=== PATIENT | female | born 1940 | race Caucasian/White ===

== ENCOUNTER 2017-03-25 21:07 | Inpatient (IN) | payer MEDICARE, BC ==
[~2017-03-25] VITALS: Ht 152.4 cm; Wt 92.2 kg
--- NOTE | ~2017-03-25 | CN ---
Consultation Report [address] [place]. [address] NAME: YURYRFERNIE : 42 STATUS : ADM IN [facility]#: [id number] AGE: 76 ADM/REG DATE : 03/26/17 MR#: [id number] REPORT SERV DATE: 04/02/17 DICTATED BY: SUNIAT WISE DATE: 04/01/17 REPORT STATUS : Draft TRANSCRIBED BY: MODL DATE: 04/01/17 CONSULT NOTE DATE OF CONSULTATION: 04/01/2017 REASON FOR CONSULT: Lymph node biopsy. HISTORY OF PRESENT ILLNESS: The patient is a 76-year-old female who was admitted on 03/26/2017 after a fall at home with weakness and gait abnormality as well as electrolyte derangements and acute kidney injury. She was noted in particular of hypercalcemia of unclear etiology. A CT scan was performed that revealed mesenteric retroperitoneal pelvic and inguinal lymphadenopathy, suspicious for lymphoma. PAST MEDICAL HISTORY: Hypertension, diabetes, hypothyroidism, sleep apnea, uterine cancer, arthritis, diverticulitis. PAST SURGICAL HISTORY: Hysterectomy, lumpectomy, cholecystectomy, partial colectomy. SOCIAL HISTORY: The patient denies tobacco or alcohol use. ALLERGIES: DEMEROL. REVIEW OF SYSTEMS: Complete review of systems was performed and is as follows: GENERAL: The patient complains of malaise as well as weight loss, unintentional. HEENT: The patient denies vision loss, blurred vision, double vision. She denies hearing loss, congestion, or sore throat. SKIN: Denies rashes or itching. CARDIOVASCULAR: Denies chest pain, palpitations. RESPIRATORY: Does endorse some shortness of breath. Denies cough. GASTROINTESTINAL: Endorses some nausea. No vomiting or abdominal pain. NEURO: The patient denies headache, syncope, numbness, tingling in the extremity. MUSCULOSKELETAL: The patient does complain of joint pain, stiffness, especially in the knees. ENDOCRINE: The patient denies polyuria or polydipsia. PHYSICAL EXAMINATION: VITAL SIGNS: The patient is afebrile. Vital signs are stable. GENERAL: She is in no acute distress. HEENT: Normocephalic, atraumatic. Pupils are equal, round, and reactive to light. Extraocular movements are intact. Mucous membranes are moist. NECK: Supple. Trachea is midline. CARDIOVASCULAR: Regular rate and rhythm. No rubs, murmurs, or gallops. PULMONARY: Clear to auscultation bilaterally. ABDOMEN: Soft, obese, nontender. Consultation Report [place] [address] [place]. [address] NAME: YURYRFERNIE : 42 STATUS : ADM IN PAT#: [id number] AGE: 76 ADM/REG DATE : 03/26/17 MR#: [id number] REPORT SERV DATE: 04/02/17 DICTATED BY: SUNITA WISE DATE: 04/01/17 REPORT STATUS : Draft TRANSCRIBED BY: EMORY DATE: 04/01/17 EXTREMITIES: The patient moves all four extremities with 5/5 strength. There is noted to be palpable lymphadenopathy in the bilateral inguinal area. SKIN: There are no rashes. NEURO: Cranial nerves 2 through 12 are grossly intact. LABORATORY DATA: White blood cell count is 8, hematocrit 40.1, platelets 229. Sodium 143, potassium 4, chloride 106, bicarb 28, BUN 29, creatinine 0.9, glucose 124, calcium 11.8. ASSESSMENT AND PLAN: The patient is a 76-year-old female with weakness, falls, hypercalcemia of unclear etiology as well as diffuse lymphadenopathy concerning for lymphoma. After discussion with Dr. Wise, plan will be for open right inguinal lymph node biopsy tomorrow. Risks, benefits, and alternatives were discussed with the patient including but not limited to risk of bleeding, infection, and damage to surrounding structures, including neurovascular structures, and risk of anesthesia. The patient expressed understanding and wishes to proceed with operative Intervention. DICTATED BY: MD VELVET Bob/EMORY Noé Wise M.D. / [id number] CC: Alicia Gannon M.D.
--- NOTE | ~2017-03-25 | HP ---
History And Physical [place] [id number] [facility] [place]. [address] NAME: FERNIE DANIEL : 42 STATUS : REG ER PAT#: [id number] AGE: 76 ADM/REG DATE : 03/25/17 MR#: [id number] REPORT SERV DATE: 03/26/17 DICTATED BY: SARIKA CONDON DATE: 03/26/17 REPORT STATUS : Draft TRANSCRIBED BY: MODTomas DATE: 03/26/17 DATE OF ADMISSION: 03/25/2017 POINT OF ENTRY: [facility] Emergency Department. CHIEF COMPLAINT: Falls with weakness and pain. HISTORY OF PRESENT ILLNESS: Ms. Daniel is a 76-year-old female with a history of hypertension, insulin-dependent diabetes mellitus type 2, hypothyroidism, GERD, and obstructive sleep apnea on CPAP therapy, who presents to emergency department today after suffering a mechanical fall at home, now with severe weakness, pain, and inability to walk. The patient states that for the past few days, she has just generally felt weak. She states that she has lost about 20 pounds over the previous two months that has been unintentional in nature. She has had a poor appetite recently as well as some abdominal discomfort and bloating. The patient also states she suffered a mechanical fall at home today landing on her sacral region. She tried to ambulate after her fall and had severe difficulties walking secondary to either pain or weakness and/or both prompting presentation to the emergency department. She denies any associated fevers, night sweats, chills, chest pain, palpitations, shortness of breath, abdominal pain, nausea, vomiting, diarrhea, constipation, dysuria, lower extremity edema, melena, hematochezia, hemoptysis, or hematemesis. Initial evaluation in the emergency department is notable for a creatinine of 1.2 with no baseline comparison. She also had multiple electrolyte abnormalities with a potassium of 2.8, magnesium 1.2, and a calcium level of 12.0. CT of the pelvis was unremarkable. EKG also unremarkable. The patient was subsequently admitted to the Hospitalist Service secondary to the patient's weakness and pain. COMPREHENSIVE REVIEW OF SYSTEMS: Otherwise negative unless listed in history of present illness. PREVIOUS MEDICAL HISTORY: 1. Insulin-dependent diabetes mellitus type 2. 2. Hypothyroidism. 3. Hypertension. 4. GERD. 5. History of uterine cancer, status post hysterectomy. 6. Obstructive sleep apnea, on CPAP therapy. 7. Asthma. 8. Osteoarthritis, osteoporosis. 9. Graves disease. 10.History of diverticulitis. 11.History of breast cancer in situ, status post lumpectomy. History And Physical [address] [address] NAME: FERNIE DANIEL : 42 STATUS : REG ER PAT#: [id number] AGE: 76 ADM/REG DATE : 03/25/17 MR#: [id number] REPORT SERV DATE: 03/26/17 DICTATED BY: SARIKA CONDON DATE: 03/26/17 REPORT STATUS : Draft TRANSCRIBED BY: EMORY DATE: 03/26/17 SURGICAL HISTORY: 1. Tonsillectomy. 2. Abdominal hysterectomy. 3. Cholecystectomy. 4. Partial thyroidectomy. 5. Breast lumpectomy. 6. Partial colectomy. ALLERGIES: DEMEROL. HOME MEDICATIONS: 1. Acetaminophen 1000 mg b.i.d. 2. Fosamax 70 mg weekly. 3. Vitamin D 10,000 units Wednesday and Wednesday. 4. Tricor 48 mg daily. 5. Visine tears t.i.d. p.r.n. 6. Hydralazine 50 mg q.p.m. 7. NovoLog 12 units q.a.m. 8. NovoLog 10 units q.p.m. 9. Lantus 16 units q.h.s. 10.Prevacid 30 mg q.a.m. 11.Synthroid 100 mcg daily. 12.Lisinopril/hydrochlorothiazide 20/12.5 one tab daily. 13.Singulair 10 mg daily. 14.Multivitamin one tab daily. 15.Dighton-3 fatty acid. 16.Fish oil 1200 mg daily. 17.Potassium chloride 10 mEq daily. 18.Sertraline 100 mg daily. 19.Simvastatin 40 mg q.h.s. 20.Terbinafine daily p.r.n. SOCIAL HISTORY: Denies any tobacco, alcohol, or illicits. FAMILY MEDICAL HISTORY: Mother with stroke, breast cancer, and dementia. Father with coronary artery disease. Siblings history is unknown. LABS AND IMAGIN. White count is 8.0, hemoglobin is 13.4, hematocrit is 40.1, platelet count is 229. INR is 1.1. 2. Sodium is 138, potassium 2.8, chloride 100, carbon dioxide 32, BUN 28, creatinine 1.21, glucose is 130, calcium is 12.0, magnesium is 1.2, protein is 6.9, albumin is 3.1, bilirubin is 0.5, ALT is 11, AST is 10, alkaline phosphatase is 38. 3. EKG per my review shows normal sinus rhythm with occasional PACs, but no acute ischemia or infarction. 4. CT scan of the pelvis shows no acute fractures per overnight virtual radiology read. History And Physical [address] [place]. [address] NAME: SUITERFERNIE : 42 STATUS : REG ER PAT#: [id number] AGE: 76 ADM/REG DATE : 03/25/17 MR#: [id number] REPORT SERV DATE: 03/26/17 DICTATED BY: SARIKA CONDON DATE: 03/26/17 REPORT STATUS : Draft TRANSCRIBED BY: EMORY DATE: 03/26/17 5. Urinalysis is pending at the time of dictation. PHYSICAL EXAMINATION: VITAL SIGNS: Temperature is 98.0 degrees Fahrenheit, pulse is 82, respirations 16, saturating 93% on room air, blood pressure 142/101. On recheck, blood pressure 164/73, pulse is 76. GENERAL: The patient is awake, alert, in no acute distress, resting comfortably in bed. She is a well-developed, well-nourished elderly obese female. HEENT: Atraumatic and normocephalic. Slightly dry mucous membranes. Pupils are equal, round, reactive to light and accommodation. Extraocular eye movements intact. No scleral icterus. NECK: No jugular venous distention. No carotid bruits. CARDIAC: Regular rate and rhythm. No murmurs or gallops. Normal S1, S2. LUNGS: Clear to auscultation bilaterally. No wheezes or crackles. ABDOMEN: Obese, soft, nontender, nondistended with good bowel sounds. No rebound, guarding, or rigidity. EXTREMITIES: Warm and well perfused. No cyanosis, clubbing, or edema. SKIN: Warm and dry. PSYCH: Affect appropriate. NEURO: Alert and oriented x3. Cranial nerves 2 through 12 are grossly intact. Speech is normal. Gait is not assessed. Strength is 5/5 bilateral lower extremities. ASSESSMENT AND PLAN: Ms. Daniel is a 76-year-old female who suffered a mechanical fall at home with resulting pain and weakness with associated gait abnormality, found to have multiple electrolyte abnormalities. PROBLEM LIST: 1. Fall. 2. Gait abnormality. 3. Weakness. 4. Hypokalemia. 5. Hypomagnesemia. 6. Hypercalcemia. 7. Acute kidney injury versus chronic kidney disease stage 3. 8. Hypothyroidism. 9. Hypertension. PLAN: 1. Fall with weakness, pain, and gait abnormality. CT pelvis was unremarkable. She does have good strength in bilateral lower extremities on individual muscle testing. We will ask Physical Therapy to evaluate the patient. She reports a history of recurrent falls in the past. Also, checking chest x-ray as well as urinalysis. Repleting electrolytes and provide IV fluid hydration. 2. Hypokalemia. Repleting per protocol. 3. Hypomagnesemia. Repleting per protocol. 4. Hypercalcemia. Checking ionized calcium level, holding hydrochlorothiazide. 5. Acute kidney injury versus chronic kidney disease stage 3. Providing some IV fluid History And Physical [address] [address] NAME: FERNIE DANIEL : 42 STATUS : REG ER PAT#: [id number] AGE: 76 ADM/REG DATE : 03/25/17 MR#: [id number] REPORT SERV DATE: 03/26/17 DICTATED BY: SARIKA CONDON DATE: 03/26/17 REPORT STATUS : Draft TRANSCRIBED BY: EMORY DATE: 03/26/17 hydration. I suspect this might be due to dehydration, as she appears to be somewhat dehydrated on exam. Holding the patient's hydrochlorothiazide, but continuing her home lisinopril for blood pressure control. 6. Hypertension. Holding hydrochlorothiazide, but continuing home lisinopril. 7. Hypothyroidism. Checking thyroid function studies. Continue the patient's home Synthroid. 8. DVT prophylaxis. Lovenox subcu. CODE STATUS: The patient wished to be full code. TOR/EMORY Sarika Condon MD / [id number] CC: Kirt Chen M.D.
--- NOTE | ~2017-03-25 | IDS ---
Interim Discharge Summary [facility] [address] [place]. [address] NAME: YURYRFERNIE : 42 STATUS : ADM IN [facility]#: [id number] AGE: 76 ADM/REG DATE : 03/26/17 MR#: [id number] REPORT SERV DATE: 04/04/17 DICTATED BY: JOAN SIMEON DATE: 04/04/17 REPORT STATUS : Draft TRANSCRIBED BY: MODL DATE: 04/04/17 ADMISSION DATE: 03/26/2017 DISCHARGE DATE: CONSULTANTS: Tesfaye Caicedo M.D., Orthopedics; Ger Garcia M.D., General Surgery. PROBLEM LIST: 1. Hypercalcemia with low parathyroid hormone. 2. Generalized weakness with falls. 3. Escherichia coli urinary tract infection. 4. Bilateral knee osteoarthritis. 5. Previous Graves' disease, now on supplemental thyroid after treatment. 6. Diabetes mellitus type 2 with A1c 6.4%. 7. Hypertension initially uncontrolled, now significantly improved. 8. Moderate protein-calorie malnutrition. 9. Obstructive sleep apnea using CPAP. 10.Unintentional weight loss 20 pounds in the last three months. HISTORY: This patient presented to the emergency room at [facility], having had a fall, landing on her tailbone, and having considerable pain. She also has been experiencing significant pain in her right knee making it difficult for her to walk, so she has been much more sedentary recently. She had also lost about 20 pounds in the previous two months without any attempt to lose weight. In the emergency room, she was noted to have a calcium level elevation at 12 as well as the weakness described above, and we were asked to take care of her in the hospital. There was an abnormal urinalysis on presentation and the urine culture did grow out greater than 100,000 E. coli that was pansensitive and the patient received Rocephin 1 g IV daily, but the patient stated that she had no urinary discomfort, no dysuria, no frequency, no urgency. The patient's calcium level remain consistently elevated ranging anywhere from 10.4 to 12. Her ionized calcium was elevated anywhere from 5.28 to 6.19. The patient's parathyroid hormone level was 13.7, which is significantly suppressed given her calcium level simultaneously of 11.3, therefore, a parathyroid hormone related peptide has been ordered, but has been sent out as were concerned about the possibility of malignancy. She was moderately immobilized with her arthritis and taking a thiazide, so that could potentially give her mild hypercalcemia. Her 125 vitamin D level was normal at 52.8, 25 vitamin D level was low at 22, serum protein electrophoresis revealed hypogammaglobulinemia, but no monoclonal protein. Because of the persistent moderate elevation of her calcium despite discontinuing the thiazide and given her hydration and a low parathyroid hormone, it was concerning that she may have malignancy. The patient underwent CT scan chest, abdomen, and pelvis. This revealed mesenteric retroperitoneal pelvic and inguinal lymphadenopathy. There was some ill-defined stranding and soft tissue in the mesentery and retroperitoneum. Findings overall per Radiology were Interim Discharge Summary [address] [place]. [address] NAME: FERNIE BROWN : 42 STATUS : ADM IN PAT#: [id number] AGE: 76 ADM/REG DATE : 03/26/17 MR#: [id number] REPORT SERV DATE: 04/04/17 DICTATED BY: JOAN SIMEON DATE: 04/04/17 REPORT STATUS : Draft TRANSCRIBED BY: EMORY DATE: 04/04/17 suspicious for lymphoma, mildly prominent mediastinal lymph nodes, mild stranding around the pancreatic head and neck although she had no abdominal discomfort whatsoever. She does have some emphysema. She has an irregular tissue in the left breast about 2.6 cm, which could be postsurgical or has a scar, but also could be a mass. She had enlargement of the central pulmonary arteries consistent with pulmonary artery hypertension. She has bilateral pelvic and inguinal adenopathy with right external iliac node 2.8 x 2 cm, right inguinal node 2.5 x 1.7 cm, left external iliac node 1.8 x 1.5 cm. Similarly, she has the mesenteric and retroperitoneal lymph nodes enlarged to a similar degree. Because of the inguinal adenopathy, I did ask General Surgery, Dr. Garcia to see the patient and they took her to the operating room for a lymph node excision on 04/02/2017, with an open right inguinal lymph node excisional biopsy. We are waiting for that pathology result to return. The patient and her family know that we have concern for malignancy. Pending studies at this time include the pathology on the lymph node, as well as the parathyroid hormone-related peptide. Also need to keep in mind this abnormality in the left breast. The patient has otherwise been improving. Dr. Caicedo had given her a steroid injection, her right knee with dramatic improvement. She is now ambulatory much better as far as her pain control and dramatically improved. She does, however, have the evidence to need still on ongoing rehab and those arrangements have been made. They have just been postponed, we are waiting for the lymph node biopsy to come back. MART/EMORY Joan Simeon M.D. / [id number] CC: Alicia Gannon M.D.
--- NOTE | ~2017-03-25 | DS ---
Discharge Summary [place] [id number] [facility] [place]. [address] NAME: SUITERFERNIE : 42 STATUS : DIS IN PAT#: [id number] AGE: 76 ADM/REG DATE : 03/26/17 MR#: [id number] REPORT SERV DATE: 04/08/17 DICTATED BY: DATE: REPORT STATUS : Draft TRANSCRIBED BY: MODL DATE: 04/07/17 ADMISSION DATE: 03/26/2017 DISCHARGE DATE: 04/07/2017 CONSULTING PHYSICIAN: Dr. Garcia for Surgery; Dr. Caicedo for Ortho. FINAL DIAGNOSES: 1. Hypercalcemia, improving. 2. Lymphadenopathy, status post biopsy, benign. 3. Weakness and falls. 4. Bilateral knee osteoarthritis. 5. Hypertension. 6. Diabetes with hypoglycemia. 7. Obstructive sleep apnea. 8. Status post Escherichia coli urinary tract infection. 9. Status post dehydration with hypokalemia and hypomagnesemia. 10.Hypothyroidism. HOSPITAL COURSE: Please refer to the H and P done by Dr. Pedro dated on 03/26/2017 and the interim discharge summary done by Dr. Simeon on 04/04/2017. Since I took care of this patient, the patient's calcium is trending downward, however, it is still elevated. Other causes off hypercalcemia was entertained, and we got the following report. PTH related peptide is less than 1.1 which is normal. Vitamin 1, 25 is 52.8 which is within normal. Intact PTH is 13.7, vitamin D25 is 22, which is low. SPEP hypogammaglobinemia, no monoclonal protein detected and pathology of the lymph node biopsy turned out to be benign. The patient feels better. Vitals remained stable. She is feeling better after the steroid injection of Dr. Caicedo, and she was told that she needs to follow up with him, as she would need knee replacements. Meanwhile, she has been approved for [facility]. She will be transferred there for rehab and follow up with the [facility] doctor, after which she needs to follow up to Dr. Kirt Chen once discharged from [facility]. She will be on the following medications. Norvasc 5 mg a day, fenofibrate 48 mg a day, folic acid 1 mg a day, subcu insulin protocol level 1, Synthroid 100 mcg a day, lisinopril 40 mg a day, Singulair 10 mg a day, Fosamax 70 mg q.7 days, multivitamin once a day, fish oil 1200 mg a day, Protonix 40 mg a day, potassium 10 mEq a day, Zoloft 200 mg at bedtime, Zocor 20 mg at bedtime, hydralazine 50 mg q.8 hours, Levemir 18 units at bedtime. The patient will need to have her calcium and ionized calcium followed up on an outpatient basis, this has been explained to her. /EMORY RUBIO LANTIGUA Discharge Summary [address] [address] NAME: FERNIE BROWN : 42 STATUS : DIS IN PAT#: [id number] AGE: 76 ADM/REG DATE : 03/26/17 MR#: [id number] REPORT SERV DATE: 04/08/17 DICTATED BY: DATE: REPORT STATUS : Draft TRANSCRIBED BY: EMORY DATE: 04/07/17 / [id number] CC: Alicia Bingham M.D.
--- NOTE | ~2017-03-25 | CN ---
Consultation Report [facility] [address] [place]. [address] NAME: FERNIE DANIEL : 42 STATUS : ADM IN PAT#: [id number] AGE: 76 ADM/REG DATE : 03/26/17 MR#: [id number] REPORT SERV DATE: 03/30/17 DICTATED BY: TESFAYE CAICEDO DATE: 03/30/17 REPORT STATUS : Draft TRANSCRIBED BY: MODL DATE: 03/30/17 CONSULTATION DATE OF CONSULTATION: 03/30/2017 CHIEF COMPLAINT: Bilateral knee pain, significantly worse on the right. HISTORY: Ms Daniel is a 76-year-old female, who fell approximately five days ago. She has had increased knee pain since the time of the fall. She has a marginal household ambulator at home occasionally with the use of a walker. She complains of chronic medial knee pain in both knees. Her comfortable ambulatory distance has been limited to a block or two for quite some time. She has noted increased pain and swelling in the right knee since the time of the fall. I have now been asked to see her for further evaluation and treatment. On questioning, she denies any significant fever or chills. She has no history of inflammatory arthritis. She denies any past history of gout or other inflammatory arthropathy. PHYSICAL EXAMINATION: GENERAL: She is awake, alert, and oriented x3. MUSCULOSKELETAL: With regard to her knee, she has a large effusion on the right. Minimal effusion on the left. Her right knee range of motion is from 17 to 90 degrees. Left knee range of motion from 5 to 120 degrees. She has mild to moderate varus deformities in both knees with moderate pseudolaxity valgus stress at 30 degrees of flexion, worse in the right knee than the left. She is not clinically ACL or PCL deficient on either knee. She cannot tolerate Nirav testing due to limited flexion. She has palpable pedal pulses and normal peroneal nerve function bilaterally. There is no extensor lag bilaterally. IMAGING: X-rays of her knee show severe bilateral varus osteoarthritis of the knees, worse on the right than left. IMPRESSION: 1. Severe bilateral varus osteoarthritis of the knees. 2. Inflammatory effusion of the right knee. PLAN: I have to see if we can improve Ms Daniel's right knee pain. I have recommended intra articular cortisone injection. This was done under in sterile conditions with 80 mg of Depo Medrol and 8 mL of 1% plain lidocaine. She cannot take nonsteroidals due to her underlying renal insufficiency. She will likely ultimately need total knee arthroplasty to gain meaningful lasting pain relief. She can follow up as an outpatient after she is medically stabilized. Thanks for the consultation. Consultation Report [place] [id number] [place]. [address] NAME: FERNIE DANIEL : 42 STATUS : ADM IN PAT#: [id number] AGE: 76 ADM/REG DATE : 03/26/17 MR#: [id number] REPORT SERV DATE: 03/30/17 DICTATED BY: TESFAYE CAICEDO DATE: 03/30/17 REPORT STATUS : Draft TRANSCRIBED BY: EMORY DATE: 03/30/17 AFTAB/EMORY Tesfaye Caicedo M.D. / [id number] CC: Alicia Bingham M.D.
--- NOTE | ~2017-03-25 | OP ---
Record Of Operation [facility] [address] [place]. [address] NAME: SUITERFERNIE : 42 STATUS : ADM IN PAT#: [id number] AGE: 76 ADM/REG DATE : 03/26/17 MR#: [id number] REPORT SERV DATE: 04/03/17 DICTATED BY: SUNITA WISE DATE: 04/03/17 REPORT STATUS : Draft TRANSCRIBED BY: MODL DATE: 04/03/17 DATE OF PROCEDURE: 04/02/2017 PREOPERATIVE DIAGNOSIS: Right inguinal lymphadenopathy. POSTOPERATIVE DIAGNOSIS: Right inguinal lymphadenopathy. OPERATION: Open right inguinal lymph node biopsy. RESIDENT: Awa Bangura MD ANESTHESIA: MAC and local. ESTIMATED BLOOD LOSS: Less than 5 mL. SPECIMENS: Right inguinal lymph node x2. INDICATION FOR PROCEDURE: The patient is a 76-year-old female who was admitted for mechanical fall, weakness, and malaise, as well as electrolyte derangements including hypercalcemia, found on CT scan imaging to have retroperitoneal, mesenteric, and inguinal lymphadenopathy suspicious potentially for malignancy. After discussion with the patient of the risks, benefits, and alternatives of inguinal lymph node biopsy including, but not limited to, risk of anesthesia, bleeding, infection, damage to surrounding structures, the patient expressed understanding and wished to proceed with biopsy. DESCRIPTION OF PROCEDURE: The patient was taken to the operating room and placed on the operating table in the supine position. MAC anesthesia was induced. The patient's right lower extremity was placed in the frogleg position, and her pannus was retracted superiorly using tape. The right groin was then prepped and draped in usual sterile fashion. A transverse incision was made with a scalpel in the location over a palpable right inguinal lymph node. Electrocautery was used to dissect through the subcutaneous tissues until the lymph node was encountered. It was not matted and freely movable. The feeding vessels and lymphatics in the lymph node were then ligated using clips. Metzenbaum scissors were used to sharply excise the inguinal lymph node once all the feeding vessels and lymphatics were then ligated. In close proximity to this lymph node, there was noted to be a second readily accessible lymph node within the surgical block, so this was also excised in a similar fashion. The two lymph nodes were sent off to pathology for frozen and permanent preparation and were confirmed by pathology to be lymphoid tissue. Electrocautery was used to obtain hemostasis in the wound bed. The subcutaneous tissues were reapproximated using simple interrupted sutures of 3-0 Vicryl, and the skin was reapproximated using a running deep dermal stitch of 4-0 Vicryl. The incision was cleaned and dried, and Dermabond was applied after further local anesthetic had been infiltrated into the wound. The patient was then taken to PACU from the OR, having tolerated the procedure well. DICTATED BY: Awa Bangura MD Record Of Operation [address] [address] NAME: FERNIE BROWN : 42 STATUS : ADM IN PAT#: [id number] AGE: 76 ADM/REG DATE : 03/26/17 MR#: [id number] REPORT SERV DATE: 04/03/17 DICTATED BY: SUNITA WISE DATE: 04/03/17 REPORT STATUS : Draft TRANSCRIBED BY: EMORY DATE: 04/03/17 VELVET/EMORY Noé Wise M.D. / [id number] CC: Alicai Gannon M.D.
[2017-03-25 23:42] LABS: BASOPHILS 0.1 %; BASOPHILS ABSOLUTE 0.01 10/3/uL (0.0-0.16); EOSINOPHILS 0.1 %; EOSINOPHILS ABSOLUTE 0.01 10/3/uL (0.0-0.53); ER CBC TAT 0 Hrs 03 Mins; HEMATOCRIT 40.1 % (36.0-48.0); HEMOGLOBIN 13.4 g/dL (12.0-16.0); IMMATURE GRANULOCYTES 0.1 %; IMMATURE GRANULOCYTES ABSOLUTE 0.01 10/3/uL (0.0-0.11); LYMPHOCYTES 9.3 %; LYMPHOCYTES ABSOLUTE 0.74 10/3/uL (0.67-4.30); MEAN CORPUS HGB CONC 33.4 g/dL (32.0-36.0); MEAN CORPUSCULAR VOLUME 92.8 fL (80-100); MEAN PLATELET VOLUME 10.7 fL (9.2-13.0); MONOCYTES 5.6 %; MONOCYTES ABSOLUTE 0.45 10/3/uL (0.21-1.20); NEUTROPHILS 84.8 %; NEUTROPHILS ABSOLUTE 6.77 10/3/uL (2.02-8.40); PLATELET COUNT 229 10/3/uL (150-400); RBC DISTRIBUTION WIDTH 13.2 % (12.0-16.0); RED CELL COUNT 4.32 10/6/uL (4.0-5.6)
[2017-03-25 23:43] LABS: MANUAL DIFF NO %
[2017-03-25 23:58] LABS: A/G RATIO 0.8 (0.7-1.9); ALBUMIN 3.1 G/DL (3.5-5.0); ALKALINE PHOSPHATASE 38 U/L (45-117); BUN (BLOOD UREA NITROGEN) 28 MG/DL (6-23); CHLORIDE, SERUM 100 MMOL/L (96-112); CO2 (CARBON DIOXIDE) 32 MMOL/L (24-34); CREATININE 1.21 MG/DL (0.55-1.02); GFR AFRICAN AMERICAN 51 ML/MIN (>=60); GFR NON AFRICAN AMERICAN 44 ML/MIN (>=60); GLOBULIN 3.8 G/DL (2.5-4.1); GLUCOSE, SERUM 130 MG/DL (60-99); POTASSIUM, SERUM 2.8 MMOL/L (3.5-5.3); SGOT(AST) 10 U/L (5-40); SGPT(ALT) 11 U/L (5-65); SODIUM, SERUM 138 MMOL/L (135-148); TOTAL BILIRUBIN 0.5 MG/DL (0-1.2); TOTAL PROTEIN 6.9 G/DL (6.0-8.5)
[2017-03-26 01:01] LABS: INTERNATIONAL NORMAL RATI 1.1 UNITS (-); PARTIAL THROMBO TIME 26.5 SEC (22.5-37.2); PROTIME (NOT ORD) 13.9 SEC (12.0-14.5)
[2017-03-26] MEDS ORDERED: SYN1 PO (01:07)
[2017-03-26] MEDS ORDERED: TRICOR48 PO (01:07)
[2017-03-26] MEDS ORDERED: APRES50 PO (01:08)
[2017-03-26] MEDS ORDERED: ZOCOR40 PO (01:08)
[2017-03-26] MEDS ORDERED: ZOL100 PO (01:08)
[2017-03-26] MEDS ORDERED: LANTUSCART SC (01:09)
[2017-03-26] MEDS ORDERED: PREV30 PO (01:09)
[2017-03-26] MEDS ORDERED: NOVOLOG SC ×2 (01:10→01:11)
[2017-03-26] MEDS ORDERED: PRINZIDE1 TA1 PO (01:11)
[2017-03-26] MEDS ORDERED: SINGULAIR1 PO (01:12)
[2017-03-26] MEDS ORDERED: KDUR10 PO (01:12)
[2017-03-26] MEDS ORDERED: FOSAMAX70 MG PO (01:12)
[2017-03-26] MEDS ORDERED: MAXIMUM D3 PO (01:12)
[2017-03-26] MEDS ORDERED: MULTIVIT/MIN PO (01:13)
[2017-03-26] MEDS ORDERED: FISH OIL1200 MG PO (01:13)
[2017-03-26] MEDS ORDERED: VISINE TEARS15 ML OPH (01:14)
[2017-03-26] MEDS ORDERED: ACET500CAP PO (01:14)
[2017-03-26] MEDS ORDERED: LAMIS15 TOP (01:14)
[2017-03-26 01:22] LABS: ASCORBIC ACID (UR NOT ORDER) NEG (NEG); BILIRUBIN, URINE NEGATIVE (NEG); ER URINALYSIS TAT 0 Hrs 00 Mins; KETONE, URINE NEGATIVE (NEG); LEUKOCYTE ESTERASE(NOT OR LARGE (NEG); NITRITE (URINE) NEG (NEG); WBC (NOT ORDERED) (RFLEX) 59 (0-5)
[2017-03-26 12:07] LABS: BASOPHILS 0.2 %; BASOPHILS ABSOLUTE 0.01 10/3/uL (0.0-0.16); EOSINOPHILS ABSOLUTE 0.06 10/3/uL (0.0-0.53); HEMATOCRIT 38.2 % (36.0-48.0); HEMOGLOBIN 12.6 g/dL (12.0-16.0); IMMATURE GRANULOCYTES 0.2 %; IMMATURE GRANULOCYTES ABSOLUTE 0.01 10/3/uL (0.0-0.11); LYMPHOCYTES 13.6 %; MEAN CORPUSCULAR HEMOGLOB 30.8 pg (26.0-34.0); MEAN CORPUSCULAR VOLUME 93.4 fL (80-100); MEAN PLATELET VOLUME 10.4 fL (9.2-13.0); MONOCYTES 7.1 %; MONOCYTES ABSOLUTE 0.42 10/3/uL (0.21-1.20); NEUTROPHILS 77.9 %; PLATELET COUNT 228 10/3/uL (150-400); RBC DISTRIBUTION WIDTH 13.3 % (12.0-16.0); RED CELL COUNT 4.09 10/6/uL (4.0-5.6); WHITE BLOOD CELLS 5.9 10/3/uL (4.5-10.5)
[2017-03-26 12:10] LABS: MANUAL DIFF NO %
[2017-03-26 12:25] LABS: CALCIUM, SERUM 11.3 MG/DL (8.5-10.4); CHLORIDE, SERUM 103 MMOL/L (96-112); CO2 (CARBON DIOXIDE) 29 MMOL/L (24-34); CREATININE 1.02 MG/DL (0.55-1.02); FREE T4 1.48 NG/DL (0.76-1.46); GFR AFRICAN AMERICAN 62 ML/MIN (>=60); GFR NON AFRICAN AMERICAN 54 ML/MIN (>=60); GLUCOSE, SERUM 139 MG/DL (60-99); SODIUM, SERUM 139 MMOL/L (135-148)
[2017-03-26 12:27] LABS: BUN (BLOOD UREA NITROGEN) 24 MG/DL (6-23); POTASSIUM, SERUM 2.8 MMOL/L (3.5-5.3)
[2017-03-26 12:30] LABS: INTACT PTH (ICMA) 13.7 PG/ML (10.0-65.0)
[2017-03-27 04:59] LABS: CHLORIDE, SERUM 108 MMOL/L (96-112); CO2 (CARBON DIOXIDE) 29 MMOL/L (24-34); CREATININE 0.96 MG/DL (0.55-1.02); GFR AFRICAN AMERICAN 67 ML/MIN (>=60); GFR NON AFRICAN AMERICAN 58 ML/MIN (>=60); SODIUM, SERUM 143 MMOL/L (135-148)
[2017-03-27 05:03] LABS: BUN (BLOOD UREA NITROGEN) 19 MG/DL (6-23); GLUCOSE, SERUM 93 MG/DL (60-99); POTASSIUM, SERUM 3.4 MMOL/L (3.5-5.3)
[2017-03-28 05:27] LABS: BASOPHILS 0.4 %; BASOPHILS ABSOLUTE 0.02 10/3/uL (0.0-0.16); EOSINOPHILS 3.2 %; EOSINOPHILS ABSOLUTE 0.18 10/3/uL (0.0-0.53); HEMATOCRIT 36.3 % (36.0-48.0); HEMOGLOBIN 12.1 g/dL (12.0-16.0); IMMATURE GRANULOCYTES 0.4 %; IMMATURE GRANULOCYTES ABSOLUTE 0.02 10/3/uL (0.0-0.11); LYMPHOCYTES 17.6 %; LYMPHOCYTES ABSOLUTE 0.99 10/3/uL (0.67-4.30); MEAN CORPUS HGB CONC 33.3 g/dL (32.0-36.0); MEAN CORPUSCULAR HEMOGLOB 31.1 pg (26.0-34.0); MEAN CORPUSCULAR VOLUME 93.3 fL (80-100); MEAN PLATELET VOLUME 10.4 fL (9.2-13.0); MONOCYTES 7.5 %; MONOCYTES ABSOLUTE 0.42 10/3/uL (0.21-1.20); NEUTROPHILS 70.9 %; PLATELET COUNT 219 10/3/uL (150-400); RBC DISTRIBUTION WIDTH 13.9 % (12.0-16.0); RED CELL COUNT 3.89 10/6/uL (4.0-5.6); WHITE BLOOD CELLS 5.6 10/3/uL (4.5-10.5)
[2017-03-28 05:28] LABS: MANUAL DIFF NO %
[2017-03-28 05:42] LABS: BUN (BLOOD UREA NITROGEN) 16 MG/DL (6-23); CHLORIDE, SERUM 110 MMOL/L (96-112); CO2 (CARBON DIOXIDE) 27 MMOL/L (24-34); CREATININE 0.81 MG/DL (0.55-1.02); GFR AFRICAN AMERICAN 82 ML/MIN (>=60); GFR NON AFRICAN AMERICAN 71 ML/MIN (>=60); GLUCOSE, SERUM 98 MG/DL (60-99); POTASSIUM, SERUM 3.6 MMOL/L (3.5-5.3); SODIUM, SERUM 145 MMOL/L (135-148)
[2017-03-29 05:54] LABS: BUN (BLOOD UREA NITROGEN) 16 MG/DL (6-23); CALCIUM, SERUM 10.4 MG/DL (8.5-10.4); CHLORIDE, SERUM 110 MMOL/L (96-112); CO2 (CARBON DIOXIDE) 26 MMOL/L (24-34); CREATININE 0.84 MG/DL (0.55-1.02); GFR AFRICAN AMERICAN 79 ML/MIN (>=60); GFR NON AFRICAN AMERICAN 68 ML/MIN (>=60); GLUCOSE, SERUM 106 MG/DL (60-99); SODIUM, SERUM 144 MMOL/L (135-148)
[2017-03-30 05:35] LABS: BUN (BLOOD UREA NITROGEN) 16 MG/DL (6-23); CALCIUM, SERUM 10.9 MG/DL (8.5-10.4); CHLORIDE, SERUM 110 MMOL/L (96-112); CO2 (CARBON DIOXIDE) 25 MMOL/L (24-34); CREATININE 0.73 MG/DL (0.55-1.02); GFR AFRICAN AMERICAN 93 ML/MIN (>=60); GFR NON AFRICAN AMERICAN 81 ML/MIN (>=60); GLUCOSE, SERUM 117 MG/DL (60-99); POTASSIUM, SERUM 4.2 MMOL/L (3.5-5.3); SODIUM, SERUM 145 MMOL/L (135-148)
[2017-03-30 11:59] LABS: PHOSPHORUS, SERUM 3.1 MG/DL (2.5-4.5)
[2017-03-31 05:15] LABS: BUN (BLOOD UREA NITROGEN) 18 MG/DL (6-23); CALCIUM, SERUM 11.2 MG/DL (8.5-10.4); CHLORIDE, SERUM 107 MMOL/L (96-112); CO2 (CARBON DIOXIDE) 27 MMOL/L (24-34); CREATININE 0.73 MG/DL (0.55-1.02); GFR AFRICAN AMERICAN 93 ML/MIN (>=60); GFR NON AFRICAN AMERICAN 81 ML/MIN (>=60); PHOSPHORUS, SERUM 3.4 MG/DL (2.5-4.5); POTASSIUM, SERUM 4.3 MMOL/L (3.5-5.3); SODIUM, SERUM 141 MMOL/L (135-148)
[2017-03-31 05:19] LABS: GLUCOSE, SERUM 161 MG/DL (60-99)
[2017-03-31 14:41] LABS: T PROTEIN (ELECT)(NOT OR 6.2 G/DL (6.0-8.5)
[2017-04-01 05:51] LABS: ALBUMIN 2.8 G/DL (3.5-5.0); BUN (BLOOD UREA NITROGEN) 29 MG/DL (6-23); CALCIUM, SERUM 11.8 MG/DL (8.5-10.4); CHLORIDE, SERUM 106 MMOL/L (96-112); CO2 (CARBON DIOXIDE) 28 MMOL/L (24-34); GFR AFRICAN AMERICAN 72 ML/MIN (>=60); GFR NON AFRICAN AMERICAN 63 ML/MIN (>=60); GLUCOSE, SERUM 124 MG/DL (60-99); SODIUM, SERUM 143 MMOL/L (135-148)
[2017-04-01 10:21] LABS: A/G 1.38 RATIO (0.9-2.10); ALPHA 1 (ELECTRO) 0.32 GM/DL (0.1-0.4); ALPHA 1 RELAT % (NOT ORD) 5.2 % (1.0-4.0); ALPHA 2 (ELECTRO) 0.91 GM/DL (0.5-1.10); ALPHA 2 RELAT % 14.6 % (4.5-26.0); BETA GLOBULIN (SPE) 0.79 GM/DL (0.60-1.30); BETA RELATIVE % 12.7 % (9.0-22.0); GAMMA GLOBULIN (SPE) 0.59 G/DL (0.70-1.60); GAMMA RELAT % 9.5 % (6.0-22.0)
[2017-04-02 05:30] LABS: ALBUMIN 2.8 G/DL (3.5-5.0); BUN (BLOOD UREA NITROGEN) 27 MG/DL (6-23); CALCIUM, SERUM 11.1 MG/DL (8.5-10.4); CHLORIDE, SERUM 102 MMOL/L (96-112); CO2 (CARBON DIOXIDE) 32 MMOL/L (24-34); CREATININE 1.07 MG/DL (0.55-1.02); GFR AFRICAN AMERICAN 59 ML/MIN (>=60); GFR NON AFRICAN AMERICAN 51 ML/MIN (>=60); GLUCOSE, SERUM 123 MG/DL (60-99); POTASSIUM, SERUM 4.6 MMOL/L (3.5-5.3); SODIUM, SERUM 140 MMOL/L (135-148)
[2017-04-03 09:50] LABS: ALBUMIN 2.8 G/DL (3.5-5.0); BUN (BLOOD UREA NITROGEN) 24 MG/DL (6-23); CALCIUM, SERUM 10.6 MG/DL (8.5-10.4); CHLORIDE, SERUM 104 MMOL/L (96-112); CO2 (CARBON DIOXIDE) 30 MMOL/L (24-34); CREATININE 0.94 MG/DL (0.55-1.02); GFR AFRICAN AMERICAN 69 ML/MIN (>=60); GFR NON AFRICAN AMERICAN 59 ML/MIN (>=60); SODIUM, SERUM 139 MMOL/L (135-148)
[2017-04-03 09:53] LABS: GLUCOSE, SERUM 177 MG/DL (60-99); POTASSIUM, SERUM 3.6 MMOL/L (3.5-5.3)
[2017-04-04 04:34] LABS: ALBUMIN 2.8 G/DL (3.5-5.0); BUN (BLOOD UREA NITROGEN) 24 MG/DL (6-23); CALCIUM, SERUM 11.3 MG/DL (8.5-10.4); CHLORIDE, SERUM 104 MMOL/L (96-112); CO2 (CARBON DIOXIDE) 30 MMOL/L (24-34); CREATININE 0.83 MG/DL (0.55-1.02); GFR AFRICAN AMERICAN 80 ML/MIN (>=60); GFR NON AFRICAN AMERICAN 69 ML/MIN (>=60); POTASSIUM, SERUM 3.6 MMOL/L (3.5-5.3); SODIUM, SERUM 140 MMOL/L (135-148)
[2017-04-04 04:36] LABS: GLUCOSE, SERUM 105 MG/DL (60-99)
[2017-04-05 05:12] LABS: ALBUMIN 2.6 G/DL (3.5-5.0); BUN (BLOOD UREA NITROGEN) 28 MG/DL (6-23); CALCIUM, SERUM 11.6 MG/DL (8.5-10.4); CHLORIDE, SERUM 103 MMOL/L (96-112); CO2 (CARBON DIOXIDE) 29 MMOL/L (24-34); CREATININE 0.86 MG/DL (0.55-1.02); GFR AFRICAN AMERICAN 77 ML/MIN (>=60); GFR NON AFRICAN AMERICAN 66 ML/MIN (>=60); GLUCOSE, SERUM 84 MG/DL (60-99); POTASSIUM, SERUM 3.8 MMOL/L (3.5-5.3); SODIUM, SERUM 140 MMOL/L (135-148)
[2017-04-06 05:02] LABS: BUN (BLOOD UREA NITROGEN) 27 MG/DL (6-23); CALCIUM, SERUM 10.8 MG/DL (8.5-10.4); CHLORIDE, SERUM 105 MMOL/L (96-112); CO2 (CARBON DIOXIDE) 29 MMOL/L (24-34); CREATININE 0.92 MG/DL (0.55-1.02); GFR AFRICAN AMERICAN 71 ML/MIN (>=60); GFR NON AFRICAN AMERICAN 61 ML/MIN (>=60); GLUCOSE, SERUM 99 MG/DL (60-99); POTASSIUM, SERUM 3.9 MMOL/L (3.5-5.3); SODIUM, SERUM 142 MMOL/L (135-148)
[2017-04-06 18:13] LABS: PTHRP (PTH RELATED PEPTIDE) <1.1 pmol/L (())
== END 2017-04-07 17:34 | DRG 629 ==
LOC: ER 21:07 → 5NO 03-26 02:28
PROVIDERS: Colon & Rectal Surgery; Hospitalist; Internal Medicine; Nurse Practitioner
PROC: 07BH0ZX Excision of Right Inguinal Lymphatic, Open Approach, Diagnostic (ICD-10-PCS; principal; 2017-04-02 13:15)
DX: E83.52 Hypercalcemia (principal); N17.9 Acute kidney failure, unspecified; E44.0 Moderate protein-calorie malnutrition; E11.22 Type 2 diabetes mellitus with diabetic chronic kidney disease; N39.0 Urinary tract infection, site not specified; Z68.41 Body mass index [BMI] 40.0-44.9, adult; R26.9 Unspecified abnormalities of gait and mobility; Z99.81 Dependence on supplemental oxygen; I12.9 Hypertensive chronic kidney disease with stage 1 through stage 4 chronic kidney disease, or unspecified chronic kidney disease; N18.3 Chronic kidney disease, stage 3 (moderate); E03.9 Hypothyroidism, unspecified; E83.42 Hypomagnesemia; W18.30XA Fall on same level, unspecified, initial encounter; Y92.009 Unspecified place in unspecified non-institutional (private) residence as the place of occurrence of the external cause; Z79.4 Long term (current) use of insulin; K21.9 Gastro-esophageal reflux disease without esophagitis; G47.33 Obstructive sleep apnea (adult) (pediatric); Z85.42 Personal history of malignant neoplasm of other parts of uterus; M81.0 Age-related osteoporosis without current pathological fracture; B96.20 Unspecified Escherichia coli [E. coli] as the cause of diseases classified elsewhere; M17.0 Bilateral primary osteoarthritis of knee; E66.9 Obesity, unspecified; E11.649 Type 2 diabetes mellitus with hypoglycemia without coma
CPT/HCPCS: 71010; 71250; 72192; 73560-50; 74176; 80048; 80053; 81001; 82040; 82306; 82330; 82570; 82652; 82962; 83036; 83519; 83615; 83735; 83880; 83935; 83970; 84100; 84155; 84165; 84300; 84439; 84443; 84999; 85025; 85610; 85730; 87077; 87086; 87186; 88307; 88333; 93005; 96374; 96375; 97110-GP; 97116-GP; 97162-GP; 99285; A9270-GY; G8978-CL-GP; G8979-CL-GP; G8980-CK-GP; J0290; J0360; J0690; J1040; J2405; J3010; J3475